=== PATIENT | female | born 1975 | race Hispanic/Latino ===

== ENCOUNTER 2023-01-08 15:28 | Observation (INO) | payer MEDICARE ==
[~2023-01-08] VITALS: Ht 157.5 cm; Wt 88.8 kg
[2023-01-08 15:53] LABS: BASOPHILS % (AUTO) 0.3 % (0.0-5.0); HEMATOCRIT 41.2 % (36-48); MEAN CORPUSCULAR HEMOGLOBIN 31.3 pg (27.0-33.0); MEAN CORPUSCULAR HGB CONC 35.2 g/dL (32.0-36.0); PLATELET COUNT (AUTO) 204 K/uL (130-400); RED BLOOD CELL COUNT(AUTO) 4.63 MIL/uL (4.00-5.50); RED CELL DISTRIBUTION WIDTH 13.2 % (11.0-15.5); WHITE BLOOD COUNT (AUTO) 21.4 K/uL (4.8-10.8)
[2023-01-08 15:56] LABS: APPEARANCE,URINE CLOUDY (CLEAR); BILIRUBIN,URINE NEGATIVE (NEGATIVE); COLOR,URINE YELLOW (YELLOW); GLUCOSE, URINE (UA) NEGATIVE (NEGATIVE); KETONES,URINE 20 mg/dL (NEGATIVE); LEUKOCYTE ESTERASE ,URINE 500 Leu/uL (NEGATIVE); NITRATE,URINE NEGATIVE (NEGATIVE); OCCULT BLOOD,URINE SMALL (NEGATIVE); PROTEIN,URINE 30 mg/dL (NEGATIVE); UROBILINOGEN,URINE 3 mg/dL (0.2-1.0)
[2023-01-08 16:02] LABS: CREATININE 0.9 mg/dL (0.5-1.5); POTASSIUM 3.9 mmol/L (3.5-5.1)
[2023-01-08 16:07] LABS: ALBUMIN 3.5 g/dL (3.5-5.0); TOTAL PROTEIN, SERUM 8.8 g/dL (6.0-8.3)
[2023-01-08 16:11] LABS: HCG,QUALITATIVE URINE NEGATIVE (NEGATIVE)
[2023-01-08 16:14] LABS: BACTERIA,URINE FEW /HPF (None Seen); MUCUS,URINE RARE LPF (None Seen); OTHER CASTS, URINE 3 /LPF (None Seen); SQUAMOUS EPITHELIAL CELL,UR MOD /HPF (0-2); YEAST,URINE BUDDING FEW /HPF (None Seen)
[2023-01-08 16:33] LABS: LYMPHOCYTES % (AUTO) 7.4 % (21.0-51.0); NEUTROPHILS % (AUTO) 86.2 % (40.0-77.0)
[2023-01-08 16:34] LABS: EOSINOPHILS % (AUTO) 0.3 % (0.0-8.0); MONOCYTES % (AUTO) 4.9 % (3.0-13.0)
[2023-01-08] MEDS ORDERED: ZOSYN 3.375GM+NS 50ML 50 ML IVPB SCH (17:06)
[2023-01-08] MEDS ORDERED: IBUPROFEN 600 MG TABLET PO ONE (17:30)
[2023-01-08] MEDS ORDERED: ACETAMINOPHEN 500 MG TABLET PO SCH (17:30)
[2023-01-08] MEDS ORDERED: 0.9%NACL 1000ML 1,503 ML IV SCH (17:30)
[2023-01-08] MEDS ORDERED: ACETAMINOPHEN 325 MG TAB PO PRN (19:30)
[2023-01-08] MEDS ORDERED: HYDRALAZINE 20MG/ML VIAL IV PRN (19:30)
[2023-01-08] MEDS ORDERED: CLONIDINE HCL 0.1 MG TABLET PO PRN (19:30)
[2023-01-08] MEDS ORDERED: LACTULOSE 20 GM/30 ML UDCUP PO PRN (19:30)
[2023-01-08] MEDS ORDERED: TEMAZEPAM 15 MG CAPSULE PO PRN (19:30)
[2023-01-08] MEDS ORDERED: ACETAMINOPHEN 650 MG SUPPOSITORY RC PRN (19:30)
[2023-01-08] MEDS ORDERED: ONDANSETRON 4MG INJ IVP PRN (19:30)
[2023-01-08] MEDS ORDERED: LABETALOL 20MG SYG IV PRN (19:30)
[2023-01-08] MEDS ORDERED: DOCUSATE SODIUM 100 MG CAP PO PRN (19:30)
[2023-01-08] MEDS ORDERED: IBUPROFEN 600 MG TABLET PO PRN (20:30)
[2023-01-08] MEDS ORDERED: MAGNESIUM 2GM PREMIX 50ML 50 ML IV PRN (21:00)
[2023-01-08] MEDS ORDERED: POTASSIUM CHLORIDE 20MEQ/100ML 100 ML IV PRN (21:00)
[2023-01-08] MEDS: INSULIN HUMULIN R 100 UNIT/ML 3ML SQ SCH (21:00)
[2023-01-08] MEDS ORDERED: POTASSIUM CHLORIDE 10% ELIXIR 20 MEQ/15 ML UDCUP PO PRN (21:00)
[2023-01-08] MEDS ORDERED: KCL 20 MEQ ERTAB PO PRN (21:00)
[2023-01-08] MEDS ORDERED: 0.9%NACL 1000ML 1,000 ML IV STA (21:21)
[2023-01-08] MEDS: 0.9%NACL 1000ML 1,000 ML IV SCH (21:45)
[2023-01-08 23:00] VITALS: BP 129/67
[2023-01-09] MEDS ORDERED: 0.9%NACL 50ML IV SCH (02:00)
[2023-01-09] MEDS ORDERED: METF500S9 PO (02:41)
[2023-01-09] MEDS ORDERED: ATOR20TA65 PO (02:41)
[2023-01-09] MEDS ORDERED: LOSA50TA64 PO (02:41)
[2023-01-09 03:50] VITALS: BP 108/61
[2023-01-09] MEDS: ZOSYN 3.375GM +NS 50ML IVPB SCH ×3 (05:04→19:40)
[2023-01-09] MEDS: 0.9%NACL 1000ML 1,000 ML IV SCH ×2 (05:05→16:27)
[2023-01-09 05:14] LABS: BASOPHILS % (AUTO) 0.4 % (0.0-5.0); EOSINOPHILS % (AUTO) 0.4 % (0.0-8.0); HEMATOCRIT 38.4 % (36-48); LYMPHOCYTES % (AUTO) 13.2 % (21.0-51.0); MEAN CORPUSCULAR HGB CONC 33.9 g/dL (32.0-36.0); MEAN CORPUSCULAR VOLUME 91.4 fL (79-99); MONOCYTES % (AUTO) 6.1 % (3.0-13.0); NEUTROPHILS % (AUTO) 79.3 % (40.0-77.0); PLATELET COUNT (AUTO) 150 K/uL (130-400); RED CELL DISTRIBUTION WIDTH 13.4 % (11.0-15.5); WHITE BLOOD COUNT (AUTO) 13.5 K/uL (4.8-10.8)
[2023-01-09 05:33] LABS: CREATININE 0.8 mg/dL (0.5-1.5); MAGNESIUM 1.8 mg/dL (1.80-2.40); PHOSPHORUS 3.1 mg/dL (2.5-4.9); POTASSIUM 3.5 mmol/L (3.5-5.1)
[2023-01-09] MEDS: INSULIN HUMULIN R 100 UNIT/ML 3ML SQ SCH ×4 (06:22→19:44)
[2023-01-09 07:57] VITALS: BP 113/59
[2023-01-09] MEDS: PANTOPRAZOLE 40 MG TAB DR PO SCH (08:02)
[2023-01-09] MEDS: ENOXAPARIN SODIUM 40 MG/0.4 ML SYRINGE SQ SCH (08:02)
[2023-01-09 12:00] VITALS: BP 124/84
[2023-01-09 16:00] VITALS: BP 113/82
[2023-01-09 20:04] VITALS: BP 136/73
[2023-01-09] MEDS ORDERED: ATORVASTATIN 20 MG TABLET PO SCH (21:00)
[2023-01-09 23:39] VITALS: BP 136/84
[2023-01-10] MEDS: 0.9%NACL 1000ML 1,000 ML IV SCH ×2 (01:30→11:30)
[2023-01-10 04:06] VITALS: BP 137/82
[2023-01-10] MEDS: ZOSYN 3.375GM +NS 50ML IVPB SCH ×2 (04:58→12:48)
[2023-01-10 05:49] LABS: BASOPHILS % (AUTO) 0.5 % (0.0-5.0); EOSINOPHILS % (AUTO) 0.7 % (0.0-8.0); HEMATOCRIT 40.5 % (36-48); LYMPHOCYTES % (AUTO) 16.8 % (21.0-51.0); MEAN CORPUSCULAR HEMOGLOBIN 31.2 pg (27.0-33.0); MEAN CORPUSCULAR HGB CONC 34.3 g/dL (32.0-36.0); MEAN CORPUSCULAR VOLUME 90.8 fL (79-99); MONOCYTES % (AUTO) 6.8 % (3.0-13.0); NEUTROPHILS % (AUTO) 74.4 % (40.0-77.0); PLATELET COUNT (AUTO) 168 K/uL (130-400); RED BLOOD CELL COUNT(AUTO) 4.46 MIL/uL (4.00-5.50); RED CELL DISTRIBUTION WIDTH 13.3 % (11.0-15.5); WHITE BLOOD COUNT (AUTO) 14.3 K/uL (4.8-10.8)
[2023-01-10] MEDS: INSULIN HUMULIN R 100 UNIT/ML 3ML SQ SCH ×3 (06:03→16:30)
[2023-01-10 06:13] LABS: ALBUMIN 2.7 g/dL (3.5-5.0); POTASSIUM 4.1 mmol/L (3.5-5.1); THYROID STIMULATING HORMONE 1.06 uIU/mL (0.36-3.74); TOTAL PROTEIN, SERUM 7.4 g/dL (6.0-8.3)
[2023-01-10 06:21] LABS: HEMOGLOBIN A1C 6.4 % (4.0-6.0)
[2023-01-10 07:20] LABS: CREATININE 0.7 mg/dL (0.5-1.5); MAGNESIUM 1.8 mg/dL (1.80-2.40)
[2023-01-10 07:56] VITALS: BP 112/66
[2023-01-10] MEDS: PANTOPRAZOLE 40 MG TAB DR PO SCH (08:09)
[2023-01-10] MEDS: ENOXAPARIN SODIUM 40 MG/0.4 ML SYRINGE SQ SCH (08:09)
[2023-01-10] MEDS ORDERED: LOSARTAN 50 MG TABLET PO SCH (09:00)
[2023-01-10 12:00] VITALS: BP 127/78
[2023-01-10] MEDS ORDERED: [UNRECOGNIZED DRUG - CODE] PO (15:22)
[2023-01-10] MEDS ORDERED: PANT40TA PO (15:22)
[2023-01-10 16:00] VITALS: BP 128/86
[2023-01-10 19:51] VITALS: BP 137/76
== END 2023-01-10 20:25 | disposition home or self-care (01) ==
LOC: EDH 15:28 → EDHIP 18:44 → 3DH 21:33
PROVIDERS: ADMIT Internal Medicine Critical Care Medicine; ATTEND Internal Medicine Critical Care Medicine
DX: A41.9 Sepsis, unspecified organism (principal); Z20.822 Contact with and (suspected) exposure to COVID-19; N30.00 Acute cystitis without hematuria; J02.0 Streptococcal pharyngitis; I10 Essential (primary) hypertension; E78.5 Hyperlipidemia, unspecified; E11.9 Type 2 diabetes mellitus without complications; Z90.710 Acquired absence of both cervix and uterus; Z79.4 Long term (current) use of insulin; Z98.891 History of uterine scar from previous surgery; Z79.899 Other long term (current) drug therapy
CPT/HCPCS: 96365; 96366 ×3; 80053 ×2; 85025 ×3; 87040 ×2; 87077; 87088; 87186; 87880; 87804 ×2; 82948 ×8; 83605 ×2; 81001; 81025; 36415 ×3; 87635; 99291; 96372 ×2; 96361; 96368; 83735 ×2; 84100; 80048; 71045; 83036; 84443; 82550; 84145; G0378 ×49; C9803; J7030; J2543 ×6; J3475; J1650 ×2